=== PATIENT | female | born 1970 | race Caucasian/White ===

== ENCOUNTER 2022-09-02 08:57 | Day surgery (SDC) | payer OTHER ==
[~2022-09-02 08:57] MED LIST: Lactated Ringers 1,000 ML IV SCH; Sodium Chloride 0.9% 10 ML Syringe FLUSH PRN
[2022-09-02] MEDS ORDERED: Propofol 200 MG/20 ML SDV ONE ×2 (09:55→10:09)
[2022-09-02] MEDS ORDERED: fentaNYL 100 MCG/2 ML SDV ONE (09:55)
[2022-09-23] MEDS ORDERED: Lactated Ringers 1,000 ML IV SCH (07:00)
== END 2022-09-02 12:10 | disposition home or self-care (01) ==
LOC: VM.SDS 08:57
PROVIDERS: ATTEND Student in an Organized Health Care Education/Training Program
DX: Z12.11 Encounter for screening for malignant neoplasm of colon (principal); D12.2 Benign neoplasm of ascending colon; J45.909 Unspecified asthma, uncomplicated; E78.5 Hyperlipidemia, unspecified; F41.9 Anxiety disorder, unspecified; F32.A Depression, unspecified; K21.9 Gastro-esophageal reflux disease without esophagitis; G47.00 Insomnia, unspecified; E55.9 Vitamin D deficiency, unspecified; N18.9 Chronic kidney disease, unspecified; Q79.60 Ehlers-Danlos syndrome, unspecified; Z86.010 Personal history of colon polyps; Z98.890 Other specified postprocedural states; Z79.899 Other long term (current) drug therapy
CPT/HCPCS: 00811; 45380; J2704; J3010; J7120